=== PATIENT | male | born 1960 | race Caucasian/White ===

== ENCOUNTER 2019-06-03 13:16 | Emergency (ER) | payer OTHER ==
[2019-06-03 13:23] VITALS: BP 159/95
--- NOTE | 2019-06-03 14:24 | UC ---
Laceration HPI - HPI Summary HPI Summary: Pt reports that he was in a rest stop bathroom and stood up from toilet and hit top of head on hand dryer, ~ 45 minutes prior to arrival. Pt denies LOC, but does report that he "saw stars". - History Of Current Complaint Chief Complaint: UCLaceration Stated Complaint: HEAD LACERATION Time Seen by Provider: 06/03/19 14:00 Hx Obtained From: Patient Laceration Location: Head - crown of head Mechanism Of Injury: Blunt Trauma Onset/Duration: Sudden Onset Severity: Moderate Pain Intensity: 7 Aggravating Factors: Position, Movement - Allergies/Home Medications Allergies/Adverse Reactions: Allergies Allergy/AdvReac Type Severity Reaction Status Date / Time No Known Allergies Allergy Verified 06/03/19 13:21 Home Medications: Home Medications Escitalopram * [Lexapro *] 20 mg PO DAILY 06/03/19 [History Confirmed 06/03/19] Tamsulosin CAP* [Flomax CAP*] 0.4 mg PO DAILY 06/03/19 [History Confirmed ] PMH/Surg Hx/FS Hx/Imm Hx Previously Healthy: Yes - Surgical History Surgical History: Yes Surgery Procedure, Year, and Place: bilateral knee scopes. lumbar laminectomy. fatty tumor removal - Family History Known Family History: Positive: Cardiac Disease - Social History Occupation: Employed Full-time Lives: With Family Alcohol Use: Occasionally Substance Use Type: None Smoking Status (MU): Former Smoker Have You Smoked in the Last Year: No - Immunization History Vaccination Up to Date: Yes Review of Systems All Other Systems Reviewed And Are Negative: Yes Constitutional: Positive: Negative Skin: Positive: Other - laceration to top of head/scalp Eyes: Positive: Negative ENT: Positive: Negative Respiratory: Positive: Negative Cardiovascular: Positive: Negative Gastrointestinal: Positive: Negative Genitourinary: Positive: Negative Motor: Positive: Negative Neurovascular: Positive: Negative Musculoskeletal: Positive: Negative Neurological: Positive: Headache - imporved/resolved after wound was cleansed Psychological: Positive: Negative Is Patient Immunocompromised?: No Physical Exam Triage Information Reviewed: Yes Appearance: Well-Appearing Vital Signs: Initial Vital Signs Temp 98.5 F 06/03/19 13:18 Pulse 69 06/03/19 13:18 Resp 18 06/03/19 13:18 BP 159/95 06/03/19 13:18 Pulse Ox 97 06/03/19 13:18 Vital Signs Reviewed: Yes Eye Exam: Normal ENT Exam: Normal ENT: Positive: Hearing grossly normal Dental Exam: Normal Neck exam: Normal Respiratory Exam: Normal Respiratory: Positive: No respiratory distress Musculoskeletal Exam: Normal Neurological Exam: Normal Psychological Exam: Normal Skin Exam: Other - laceration scalp/crown of head Laceration Repair - Laceration Repair 1 Description: Linear Laceration Size After Repair: Length (cm) - 3, Width (mm) - 2, Depth (mm) - 3 Modified For Repair: No Closure Material: Harmon - 5 markie placed Closure Method: Single Layer Suture Of: Skin - Pt's hair was trimmed to remove hair from wound. Laceration Course/Dx - Course/Dx Course Of Treatment: Pt was instructed to stay out of [place] or other body of water. Pt verbalized understanding and agreed to plan of care - Differential Dx - Laceration/Wound Differental Diagnoses: Laceration - Diagnosis Provider Diagnosis: Laceration of scalp without complication, Stapled skin wound Discharge - Sign-Out/Discharge Documenting (check all that apply): Patient Departure All imaging exams completed and their final reports reviewed: No Studies - Discharge Plan Condition: Stable Disposition: HOME Prescriptions: Cephalexin CAP* [Keflex 500 CAP*] 500 mg PO Q12H #10 cap Patient Education Materials: Laceration (ED), Staple Care (ED) Referrals: [facility] [Outside] - If Needed Additional Instructions: Please have return to have your markie removed in 10-14 days. You have been given a prescription for antibiotics. If you noticed that the laceration site becomes more tender, you develop a fever, chils have purulent discahrge or have generalized malaise, please seek care immediately at the closest emergency room. Please do not swim with your markie. - Billing Disposition and Condition Condition: STABLE Disposition: Home
[2019-06-03] MEDS ORDERED: Neomycin/Polym/Bacit TOP OINT* 15 GM TOPICAL ONE (14:38)
== END 2019-06-03 14:46 | disposition home or self-care (01) ==
LOC: UCCORT 13:16
DX: S01.01XA Laceration without foreign body of scalp, initial encounter (principal); W22.8XXA Striking against or struck by other objects, initial encounter; Y92.89 Other specified places as the place of occurrence of the external cause; Z87.891 Personal history of nicotine dependence
CPT/HCPCS: 12002; 13121; 99202; A9270-GY; G0463